=== PATIENT | female | born 1940 | race Caucasian/White ===

== ENCOUNTER 2020-02-29 13:48 | Outpatient (CLI) | payer MEDICARE, MEDICAID, SELFPAY ==
--- NOTE | 2020-02-29 13:54 | XR_ITS ---
WS: [id number] HIP WITH PELVIS RIGHT TECHNIQUE: 3 views of the right hip with pelvis CLINICAL INFORMATION: RIGHT HIP PAIN COMPARISON: None. FINDINGS: Moderate degenerative arthritis right hip. No acute fractures. Pelvic phleboliths. Right femoral neck and proximal femur normal. XR/XR hip RT 2-3V wo/w pel* [id number] IMPRESSION: Moderate degenerative arthritis right hip. No acute fractures.
== END 2020-02-29 13:49 | disposition home or self-care (01) ==
LOC: RADWPI 13:51
PROVIDERS: PCP Family Medicine; Visit Provider Family Medicine
DX: M16.11 Unilateral primary osteoarthritis, right hip (principal); M25.551 Pain in right hip
CPT/HCPCS: 73502

== ENCOUNTER 2020-04-12 14:44 | Outpatient (CLI) | payer MEDICARE, MEDICAID, SELFPAY ==
--- NOTE | 2020-04-12 | MR_ITS ---
WS: [id number] MRI LUMBAR SPINE NONCONTRAST HISTORY: BACK PAIN RADICULOPATHY, RIGHT hip pain and posterior leg pain. COMPARISON: 01/01/2017 TECHNIQUE: Sagittal and axial multisequence imaging is submitted. Prior cervical spine fusion. Increase in thoracic kyphosis. Extensive posterior lumbar fusion extends from L2 to L5. Posterior lumbar alignment is near normal. L 3 anterolisthesis by less than 2 mm. Severe disc space narrowing at L4-5. No marrow edema or acute fr acture. T12 benign hemangioma. Conus terminates normally at L2. T12-L1: Mild annular disc bulging and facet arthritis. Mild LEFT foraminal stenosis. L1-L2: Mild facet joint arthritis with annular disc bulging. Very mild bilateral foraminal stenosis. L2-L3: Large posterior laminectomy defects. No central canal stenosis. Mild bilateral foraminal steno sis. L3-L4: Mild deformity of the thecal sac. No central canal stenosis. Mild bilateral foraminal stenosis . L4-L5: No central canal stenosis. Mild facet joint arthritis with mild bilateral foraminal stenosis. Stenosis slightly greater on the RIGHT. L5-S1: No central stenosis. There is annular disc bulging and a shallow central disc protrusion. Debora lar disc bulging causing mild encroachment and narrowing of the foramen. There is a new mixed signal mass measuring 11 x 10 mm posterior to the RIGHT S1 segment. Increased signal predominantly on the T2 and STIR sequences and low signal on the T1 sequence. This mass is abutting the RIGHT lateral thecal sac and displacing the RIGHT S1 nerve root in the nerve roots in the thecal sac at the sacral level. There is fluid in the RIGHT L5-S1 facet joint. I favor this is probably a cyst. Paraspinal soft tissues are negative for acute process. MR/MR lumbar spine wo con* [id number] IMPRESSION: 1. Status post extensive posterior lumbar fusion from L2 to L5. 2. New variable signal mass measuring 11 x 10 mm posterior to the RIGHT S1 seg ment encroaching upon the RIGHT S1 nerve root and the nerve roots in the sacral region. New since prior studies from 2017. Favor this is probably a facet join t cyst which is complicated. Additional imaging with contrast should be obtaine d to rule out solid neoplasm. 3. Multilevel mild bilateral foraminal encroachment similar to prior studies.
== END 2020-04-12 14:45 | disposition home or self-care (01) ==
LOC: RADSHAW 14:51
PROVIDERS: PCP Family Medicine; Visit Provider Neurological Surgery
DX: M54.16 Radiculopathy, lumbar region (principal); R20.0 Anesthesia of skin; M54.9 Dorsalgia, unspecified; M54.12 Radiculopathy, cervical region; Z98.1 Arthrodesis status; M43.26 Fusion of spine, lumbar region
CPT/HCPCS: 72148

== ENCOUNTER 2020-04-20 10:34 | Outpatient (CLI) | payer MEDICARE, MEDICAID, SELFPAY ==
--- NOTE | 2020-04-20 10:43 | XRR_ITS ---
PROCEDURE INFORMATION: Exam: XR Cervical Spine, 4 or 5 Views Exam date and time: 04/20/2020 11:02 AM Age: 80 years old Clinical indication: Radicular pain (radiculopathy); Cervical region; Prior surgery; Surgery date: 6+ months; Surgery type: Fusion, date not known; Additional info: Radiculopathy cerivcal region TECHNIQUE: Imaging protocol: XR of the cervical spine, 5 views. Other technique: AP, AP open mouth odontoid, and neutral, flexion and extension lateral views of the cervical spine and a swimmer's lateral view are submitted. COMPARISON: CT Cervical Spine wo* [id number] 02/23/2016 10:17 AM FINDINGS: Vertebrae: No instability with flexion or extension positioning identified. Moderate C3-C4 and C4-C5 primary facet osteoarthritis. Anterior cervical discectomy and fusion has been performed at the C4-C5 and C5-C6 levels. The intervertebral body grafts are fused. The metallic hardware appears intact and in good position. Dental: Edentulous maxilla and mandible. Soft tissues: Unremarkable. XR/XR cervical spine 4-5V [id number] IMPRESSION: 1. Postoperative changes as above. 2. Degenerative changes as above. 3. No acute cervical spinal bony or hardware abnormality identified. 4. No instability with flexion or extension positioning identified.
== END 2020-04-20 10:35 | disposition home or self-care (01) ==
LOC: RAD 10:39
PROVIDERS: PCP Family Medicine; Visit Provider Neurological Surgery
DX: M54.2 Cervicalgia (principal); M54.12 Radiculopathy, cervical region; M47.812 Spondylosis without myelopathy or radiculopathy, cervical region; M43.22 Fusion of spine, cervical region
CPT/HCPCS: 72050

== ENCOUNTER 2020-05-11 13:25 | Outpatient (CLI) | payer MEDICARE, MEDICAID, SELFPAY ==
--- NOTE | 2020-05-11 13:31 | XR_ITS ---
WS: [id number] LUMBAR SPINE FLEXION AND EXTENSION TECHNIQUE: 3 views of the lumbar spine: Lateral neutral, flexion, and extension views. CLINICAL INFORMATION: RADICULOPATHY, LUMBAR REGION COMPARISON: None. FINDINGS: Prior postoperative changes pedicle screw fixation with interbody fusion L2-L3, L3-L4, L4-L5, and L5- S1. Immature interbody fusion L2-3. Aortic calcification. Normal alignment on the neutral view. Mild flexion instability L5-S1 measuring 3 mm. This returns to normal in extension. XR/XR lumbar spine f/e only [id number] IMPRESSION: Mild flexion instability L5-S1 measuring 3 mm.
== END 2020-05-11 13:26 | disposition home or self-care (01) ==
LOC: RAD 13:28
PROVIDERS: Family Provider Family Medicine; PCP Family Medicine; Visit Provider Neurological Surgery
DX: M54.16 Radiculopathy, lumbar region (principal); M53.2X6 Spinal instabilities, lumbar region
CPT/HCPCS: 72120

== ENCOUNTER 2020-12-30 09:22 | Outpatient (CLI) | payer MEDICARE, MEDICAID, SELFPAY ==
--- NOTE | 2020-12-30 09:32 | ECG_ITS ---
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 Interpretive Statements NAME OF STUDY: LEXISCAN SESTAMIBI STRESS TEST INDICATION: Cad PROCEDURE: At the baseline, the blood pressure was 123/60 mmHg, oxygen saturation 98% with a heart rate of 65 bpm. The electrocardiogram showed normal sinus rhythm, normal axis with normal ST and T's. The Lexiscan was infused over a period of 20 seconds. A total of 0.4 milligrams of Lexiscan was infused. The stress phase was continued for a total of 5 minutes. Heart rate at the end of the stress phase was 74 bpm, oxygen saturation 98% with a blood pressure of 123/61 mmHg. The EKG at the peak infusion revealed sinus rhythm with no significant ST-T wave changes. Sestamibi was injected 20 seconds after the Lexiscan infusion. Blood pressure at the end of the recovery phase was 125/65 mmHg, oxygen saturation 98% with a heart rate of 71 beats per minute. CONCLUSION: 1. No significant EKG changes with the LexiScan infusion. 2. No LexiScan induced chest pain or cardiac arrhythmia. 3. Normal blood pressure and heart rate response. 4. Sestamibi/sestamibi perfusion scan pending; see separate report. Electronically Signed On 01-02-2021 17:09:50 SHRIMP CLEANER by Xiomy Oropeza M.D. [id number]
--- NOTE | 2020-12-30 09:33 | NMCV_ITS ---
NM sherrie perf SPECT r/s* [id number] Kat Cat Age: 80 Gender: F : 1940 Exam Date: 12/30/2020 11:11 Ordering Phys: Mayte Caraballo MD Technologist: PRAVIN Jeffers Exam Location: [facility] Indications: CORONARY ARTERY DISEASE STRESS TEST Please see separate stress test report in [facility] for full findings IMAGE PROTOCOL Rest/Stress 1 Lexiscan Day Radiopharmaceutical Dose (mCi) Administration Site Administered by Rest: Tc-99m 11.0 IV PRAVIN Wray Sestamibi Stress:Tc-99m 32.9 IV PRAVIN Wray Sestamibi Rest: 30-Dec-2020 60 Discovery 630 Stress: 30-Dec-2020 30 Discovery 630 0.4mg Lexiscan. Images obtained in supine and prone position. SPECT RESULTS Technical Quality: Excellent Raw Data Analysis: Normal Image Corrections: No attenuation or motion correction applied Summed Stress Score: 0 Summed Rest Score: 0 Summed Difference Score: 0 PERFUSION FINDINGS SPECT images demonstrate homogeneous tracer distribution throughout the myocardium. FUNCTIONAL RESULTS (calculated via Gated SPECT) Stress Image LV EF (%): 73 Stress EDV (mL):70 TID: 0.92 Stress ESV (mL):19 FUNCTIONAL FINDINGS: The left ventricle is normal in size. Transient Ischemia Dilatation of 0.92. There is normal left ventricular systolic function. The left ventricular ejection fraction is normal with a value of 73%. There is normal left ventricular wall thickening. No regional wall motion abnormality. Normal end-diastolic and end-systolic volumes. IMPRESSIONS 1. Myocardial perfusion imaging is normal. 2. Overall left ventricular systolic function is normal without regional wall motion abnormalities. 3. The left ventricular ejection fraction is normal with a value of 73%. 4. Scan indicates low risk for cardiac events. Xiomy Oropeza MD (Electronically Signed) Final Date: 02 January 2021 17:07 S
[2020-12-30 09:54] VITALS: BMI 31.7
[2020-12-30] MEDS: regadenoson 0.4 Mg/5 ml Syringe IVP (12:14)
[2020-12-30 12:29] VITALS: BP 125/65; PULSE 72
== END 2020-12-30 09:23 | disposition home or self-care (01) ==
LOC: CDL 09:26
PROVIDERS: PCP Family Medicine; Visit Provider Internal Medicine
DX: I25.10 Atherosclerotic heart disease of native coronary artery without angina pectoris (principal)
CPT/HCPCS: 78452; 93017; A9500; J2785

== ENCOUNTER 2021-01-02 10:17 | Outpatient (CLI) | payer MEDICARE, MEDICAID, SELFPAY ==
--- NOTE | 2021-01-02 10:24 | USCV_ITS ---
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
--- NOTE | 2021-01-02 11:13 | MM_ITS ---
WS: [id number] BILATERAL SCREENING DIGITAL MAMMOGRAM WITH CAD HISTORY: SCREENING COMPARISON: 06/15/2019 and 10/11/2017 Bilateral CC and MLO views submitted. Computer aided detection analyzed. Breast composition: There are scattered areas of fibroglandular density. No suspicious masses, microc alcifications or architectural distortion. Scattered round calcifications and breast arterial calcifi cations within each breast. MM/[place] [id number] IMPRESSION: BI-RADS: 2-Benign FOLLOW UP: 1 Year Follow-up
== END 2021-01-02 10:18 | disposition home or self-care (01) ==
PROVIDERS: PCP Internal Medicine; Visit Provider Internal Medicine
DX: Z12.31 Encounter for screening mammogram for malignant neoplasm of breast (principal); I73.9 Peripheral vascular disease, unspecified; I25.10 Atherosclerotic heart disease of native coronary artery without angina pectoris; E11.40 Type 2 diabetes mellitus with diabetic neuropathy, unspecified
CPT/HCPCS: 77067; 93922

== ENCOUNTER 2021-06-13 15:16 | Outpatient (CLI) | payer MEDICARE, MEDICAID, SELFPAY ==
--- NOTE | 2021-06-13 | XR_ITS ---
WS: [id number] DEXA (DUAL ENERGY X-RAY ABSORPTIOMETRY) Bone mineral density was performed using a BillShrink machine. HISTORY: POST MENOPAUSAL COMPARISON: 05/27/2019 Left forearm BMD: 1.071 g/cm2. T score: 2.2 Z score: 4.9 Total hip BMD: Left: 0.972 g/cm2. T score: -0.3 Z score: 1.1 Right: 1.015 g/cm2. T score: 0.1 Z score: 1.4 10 year probability of a major osteoporotic fracture is 13%. Compared to the prior study from 05/27/2019. LEFT forearm bone mineral density has decreased by 1.1%. Bilateral hips bone mineral density has increased by 3.7%. XR/XR DEXA axial skeleton* [id number] IMPRESSION: NORMAL BONE MINERAL DENSITY based upon the WHO classification for females. Sign ificant increase in bone mineral density in the hips since the prior study.
== END 2021-06-13 15:17 | disposition home or self-care (01) ==
LOC: RADWPI 15:24
PROVIDERS: PCP Internal Medicine; Visit Provider Internal Medicine
DX: Z78.0 Asymptomatic menopausal state (principal)
CPT/HCPCS: 77080

== ENCOUNTER 2022-04-04 10:16 | Outpatient (CLI) | payer OTHER, MEDICAID, SELFPAY ==
--- NOTE | 2022-04-04 10:29 | MM_ITS ---
WS: [id number] BILATERAL SCREENING 3D TOMOSYNTHESIS DIGITAL MAMMOGRAM WITH CAD HISTORY: SCREENING COMPARISON: 01/02/2022, 06/15/2019 and 10/11/2017 Bilateral CC and MLO views submitted. Computer aided detection analyzed. Breast composition: There are scattered areas of fibroglandular density. No suspicious masses, microc alcifications or architectural distortion. Bilateral vascular calcifications and round punctate calci fications within each breast. No distortion. MM/[place] [id number] IMPRESSION: BI-RADS: 2-Benign FOLLOW UP: 1 Year Follow-up
== END 2022-04-04 10:17 | disposition home or self-care (01) ==
LOC: RAD 10:23
PROVIDERS: PCP Internal Medicine; Visit Provider Internal Medicine
DX: Z12.31 Encounter for screening mammogram for malignant neoplasm of breast (principal)
CPT/HCPCS: 77063; 77067

== ENCOUNTER → 2022-10-29 10:49 | Outpatient (BNVA) | payer OTHER, MEDICAID, SELFPAY | PROVIDERS: PCP Internal Medicine; Visit Provider Specialist | DX: G56.02 Carpal tunnel syndrome, left upper limb (principal) | CPT/HCPCS: 73110 ==

== ENCOUNTER 2022-10-29 14:24 | Outpatient (CLI) | payer OTHER, MEDICAID, SELFPAY | END 2022-10-29 14:25 | disposition home or self-care (01) | LOC: SPT 14:24 | PROVIDERS: PCP Internal Medicine; Visit Provider Specialist | DX: Z46.89 Encounter for fitting and adjustment of other specified devices (principal); G56.02 Carpal tunnel syndrome, left upper limb | CPT/HCPCS: 97760; L3908 ==

== ENCOUNTER 2022-11-16 08:02 | Day surgery (SDC) | payer MEDICARE, MEDICAID, SELFPAY ==
[2022-11-16] VITALS (8 sets, daily range): BP systolic 129–177; BP diastolic 70–97; PULSE 62–74; RESP 10–18; TEMP 36.2–36.7; O2SAT 96–100
[2022-11-16] MEDS: acetaminophen 1,000 MG/100 ML PIGGYBACK 400 MG IV (08:39)
[2022-11-16] MEDS: sodium chloride 0.9% 1,000 ML 30 ML IV (08:40)
[2022-11-16] MEDS: CELEcoxib 200 mg Capsule 400 MG PO (08:40)
--- NOTE | 2022-11-16 08:42 | W.PM.OPSUD ---
Surgery/Procedure H&P Update DATE OF PROCEDURE: November 16, 2022 DATE H&P PERFORMED: 11/15/22 H&P UPDATE INFORMATION: I have reviewed H&P completed within last 30 days, I have examined patient prior to procedure, No changes to prior documentation and [place] [facility] [place] indicated PREOP DIAGNOSIS: Left carpal tunnel syndrome PLANNED PROCEDURE: Operation Date: 11/16/22 09:50 Proposed Procedures p LEFT CARPAL TUNNEL RELEASE 19762 G56.0(Left) - Katia Parker MD Related Problem List Diagnoses (1) Carpal tunnel syndrome, left:
[2022-11-16 08:45] LABS: Glucose Point of Care 97 mg/dL (70-110)
--- NOTE | 2022-11-16 08:50 | ANES.PREANE2 ---
Pre-Anesthetic Assessment Height/Weight: Height 1.63 m Weight 75.296 kg Temp Pulse Resp BP Pulse Ox O2 Del Method 97.8 F 74 18 147/77 97 11/16/22 08:34 11/16/22 08:34 11/16/22 08:34 11/16/22 08:34 11/16/22 08:34 11/16/22 08:34 Preop Diagnosis: Left carpal tunnel syndrome Operation Date: 11/16/22 09:50 Proposed Procedures p LEFT CARPAL TUNNEL RELEASE 21279 G56.0(Left) - Katia Parker MD Familial anesthetic complications: None Was Beta Delphine taken within 24 hours: N/A Last intake: Intake Last Liquid Date 11/15/22 Last Liquid Time 21:00 Last Solid Date 11/15/22 Last Solid Time 18:30 Social No alcohol and No tobacco Exam alert, oriented x 3, clear to auscultation bilaterally and regular rate & rhythm Airway Mallampati: Class II Dentition: false Pulmonary Sleep Apnea CV/HEM Coronary Artery Disease (stent > 1 year) and Hypertension Metabolic Diabetes Mellitus and Hyperlipidemia Anesthetic Plan ASA status: 3 Anesthesia: General Risk of > 500 ml blood loss (7ml/kg in children): No Medications/Allergies Home Medications Medication Instructions Recorded Confirmed Last Taken Type ascorbic acid (vitamin C) 1,000 mg 1,000 mg PO BID 02/24/20 11/15/22 11/15/22 History tablet calcium 650 mg-vitamin D3 12.5 tab PO 02/24/20 11/15/22 11/15/22 History mcg-vitamin K 40 mcg chewable tablet (Viactiv) cholecalciferol (vitamin D3) 125 5,000 unit PO DAILY 02/24/20 11/15/22 11/15/22 History mcg (5,000 unit) capsule gabapentin 600 mg tablet 600 mg PO BID 02/24/20 11/15/22 11/15/22 History isosorbide dinitrate 30 mg tablet 30 mg PO DAILY 02/24/20 11/15/22 11/15/22 History levothyroxine 75 mcg capsule 75 mcg PO DAILY 02/24/20 11/15/22 11/15/22 History magnesium 250 mg tablet 250 mg PO DAILY 02/24/20 11/15/22 11/15/22 History metformin 1,000 mg tablet 1,000 mg PO BID 02/24/20 11/15/22 11/15/22 History pravastatin 80 mg tablet 80 mg PO DAILY 02/24/20 11/15/22 11/15/22 History enalapril 5 mg-hydrochlorothiazide 2 tab PO DAILY 90 days #180 tabs 03/02/20 11/15/22 11/15/22 Rx 12.5 mg tablet Cock Up Splint #1 ea 10/29/22 11/15/22 Unknown Rx dulaglutide 0.75 mg/0.5 mL 1 mg SUBCUT DIRECTED 11/15/22 11/15/22 11/10/22 History subcutaneous pen injector (Trulicity) empagliflozin 25 mg tablet 25 mg PO DAILY 11/15/22 11/15/22 11/15/22 History (Jardiance) Allergies Allergy/AdvReac Type Severity Reaction Status Date / Time sulfamethoxazole Allergy NA Verified 11/15/22 09:04 [From Bactrim] trimethoprim [From Bactrim] Allergy NA Verified 11/15/22 09:04 Current Medications Generic Name Dose Route Start Last Admin Trade Name Freq PRN Reason Stop Dose Admin Sodium Chloride 1,000 mls @ 30 mls/hr 11/16/22 08:45 11/16/22 08:40 Sodium Chloride 0.9% IV 11/17/22 08:44 30 mls/hr .Q24H RUPESH Administration PFSH Anesthesia Medical History HTN (hypertension) Surgical History H/O heart artery stent Family History Family/Other Cancer Diabetes CAD (coronary artery disease) Mother Cancer Colon CA Brother Cancer Colon CA Social History Smoking and tobacco status: never smoked Alcohol intake: never Marital status: Current occupational status: retired Data Anesthesia 11/16/22 08:35 Cardiac Studies: Sestamibi Stress Test (Cardiology) 12/30/20
[2022-11-16 09:06] LABS: Blood Urea Nitrogen 17 mg/dL (8-23); Calcium 9.4 mg/dL (8.5-10.5); Carbon Dioxide 25 mmol/L (22-29); Chloride 105 mmol/L (98-107); Glucose 91 mg/dL (65-115); Osmolality Calculated 293 mOsm/kg (285-295); Sodium 141 mmol/L (136-145)
[2022-11-16] MEDS: ceFAZolin 2,000 MG in sodium chloride 0.9% (plus) 50 ML 100 MG IV (09:35)
--- NOTE | 2022-11-16 10:38 | P.OP_ITS ---
Operative Report Date of procedure: November 16, 2022 Pre-op diagnosis: Left carpal tunnel syndrome Post-op diagnosis: Left carpal tunnel syndrome? Post-op findings: Very tight carpal canal with compression across the median nerve and hourglass deformity to the nerve. Procedure done: Left tunnel release Pathology: none sent Surgeon: Katia Parker Anesthesia: General (Per LMA, ASA 3) Estimated blood loss (mL): 2 Tourniquet time (min): 19 (At 250 mmHg) IV fluids (mL): 300 Urine output (mL): 0 (No Hughes) Complications: None Findings: Consistent with carpal tunnel syndrome with a tight carpal canal, thickened transverse carpal ligament, and deformity and discoloration of the median nerve. Condition: stable Disposition: PACU (Then return to same-day surgery for discharge to home) Brief History: This is an 82 year old female patient presenting for left carpal tunnel release. Risks and complications of been previously discussed with her. Patient rates pain at 7/10 in clinic today.? Patient notes that she was scheduled for cervical spine surgery in [place] on November 19; however, this has been postponed until December.? The patient wishes to proceed with left carpal tunnel syndrome. Risks and complications were discussed with her. Consents were signed preoperatively in the office. Procedure: The patient was brought to the operating theater. The patient had a general anesthesia per LMA, ASA 3. The tourniquet was elevated to 250 mmHg for a total tourniquet time of 19 minutes. The patient was also given Ancef 2 g preoperatively. The arm was then prepped and draped with DuraPrep in usual fashion with the arm draped free. A surgical pause was performed. At the time, the surgical pause, we confirmed the site and side of surgery. We also confirmed the patient's identity, appropriate and timely administration of preoperative antibiotics and preoperative surgical markings. An incision was then made along the thenar crease. The incision crossed the wrist joint in a curvilinear fashion. Dissection continued through skin and soft tissues using a scalpel. The palmaris longus was identified along with the transverse carpal ligament. Each of these was released carefully to avoid injury to the median nerve.? The transverse carpal ligament was significantly th ickened.? We were able to dissect gently into the carpal canal which was noted to be quite tight with significant compression across the median nerve. The nerve was visualized and was an hourglass shape with purplish discoloration. The canal was subsequently palpated to assure there was no bony encroachment upon the canal. The canal was then palpated distally and proximally to assure that my small finger was passed easily without impingement. Finding this to be so, attention was directed to closure. The wound was irrigated with ropivacaine plain. It was then closed with 2-0 nylon in an interrupted mattress fashion. Sterile dressing was then placed consisting of Dermabond, OpSite, fluffed fluffs, sterile soft roll, and an Nader wrap. The tourniquet was released after 19 minutes. There were no complications. There were no specimens. The procedure was well tolerated. Plan is the patient will be discharged home. Related Problem List Diagnoses (1) Carpal tunnel syndrome, left:
--- NOTE | 2022-11-16 14:42 | ANE.PACU2 ---
Inpatient post-anesthesia follow up: Airway intact: Yes Vital signs: Temperature 98.0 F Pulse Rate 62 Respiratory Rate 18 Blood Pressure 141/80 Pulse Oximetry 96 Oxygen Delivery Me thod Room Air Oxygen Flow Rate 10 Fraction of Inspir ed Oxygen Hydration adequate: Yes Nausea and vomiting: No Pain level: 1 Mental status: Baseline
== END 2022-11-16 11:38 | disposition home or self-care (01) ==
PROVIDERS: Anesthesiology; PCP Internal Medicine; Visit Provider Specialist
PROC: (CPT 64721; principal; 2022-11-16 09:40)
DX: G56.02 Carpal tunnel syndrome, left upper limb (principal); I25.10 Atherosclerotic heart disease of native coronary artery without angina pectoris; Z95.5 Presence of coronary angioplasty implant and graft; I10 Essential (primary) hypertension; G47.30 Sleep apnea, unspecified; E78.5 Hyperlipidemia, unspecified; E11.9 Type 2 diabetes mellitus without complications
CPT/HCPCS: 64721; 36415; 36416; 80048; 82962; J0131; J0690; J2704; J3010; J3490; J7030

== ENCOUNTER → 2022-12-04 10:32 | Outpatient (BNVA) | payer MEDICARE, MEDICAID, SELFPAY | PROVIDERS: PCP Internal Medicine; Visit Provider Nurse Practitioner Family | DX: Z98.890 Other specified postprocedural states (principal); R39.9 Unspecified symptoms and signs involving the genitourinary system | CPT/HCPCS: 81000; 99024 ==

== ENCOUNTER → 2023-01-08 09:47 | Outpatient (BNVA) | payer MEDICARE, MEDICAID, SELFPAY | PROVIDERS: PCP Internal Medicine; Visit Provider Nurse Practitioner Family | DX: G56.02 Carpal tunnel syndrome, left upper limb (principal); L84 Corns and callosities; M54.2 Cervicalgia; G89.29 Other chronic pain | CPT/HCPCS: 99024; 99214 ==

== ENCOUNTER 2023-05-06 09:44 | Emergency (ER) | payer MEDICARE, MEDICAID, SELFPAY ==
[2023-05-06 10:10] VITALS: BP 117/60; PULSE 67; RESP 17; TEMP 36.5; O2SAT 97
--- NOTE | 2023-05-06 11:09 | W.ED.FALL ---
HPI - Fall General: Chief Complaint: Fall Stated Complaint: hip pain down leg Time Seen by Provider: 05/06/23 11:01 Source: patient Mode of arrival: ambulatory Limitations: no limitations History of Present Illness: This 83-year-old female with a history of diabetes, hypertension and hyperlipidemia presents to the ER for evaluation of left hip pain. She stepped into a hole about a week ago and in the process, twisted her left hip. Since then, the hip has been hurting. She is able to bear weight and walk around though. She has a history of bilateral knee replacement and suffers from chronic neck and shoulder pain. She denies any other injuries. Associated symptoms-after fall: Denies chest pain, headache(s) or lightheadedness Review of Systems Const: Denies: chills, body aches or change in appetite Eyes: Denies: change in vision or eye discharge ENMT: Denies: throat pain, dental pain or nasal discharge Card: Denies: chest pain or lightheadedness : Denies: dysuria Musc: Reports: joint pain (Left hip) Neuro: Denies: headache(s) or weakness in extremities Psych: Denies: depression Juan R/Lymph: Denies: easy bruising All/Imm: Denies: urticaria, tongue swelling or facial swelling PFSH ED PFSH: Medical History HTN (hypertension) Surgical History H/O heart artery stent History of neck surgery Family History Family/Other Cancer Diabetes CAD (coronary artery disease) Mother Cancer Colon CA Brother Cancer Colon CA Social History Smoking and tobacco status: never smoked Alcohol intake: never Substance/Drug Use: never Marital status: Current occupational status: retired Physical Exam Const: COMMON NORMALS: no acute distress, patient oriented x3, no limitations and alert HENMT: COMMON NORMALS: normocephalic HEAD & SCALP: normocephalic Eye: COMMON NORMALS: EOMs intact bilaterally Neck/C-Spine: COMMON NORMALS: full ROM and supple Chest: COMMONS NORMALS: normal inspection of the chest Resp: COMMON NORMALS: normal respiratory effort, No retractions, No use of accessory muscles and clear to auscultation bilaterally AUSCULTATION: clear to auscultation bilaterally Cardio: COMMON NORMALS: regular rate, regular rhythm and No murmurs present (Cardio) RATE: regular rate RHYTHM: regular rhythm GI: COMMON NORMALS: Normal to inspection, nondistended, normoactive bowel sounds present and non-tender : COMMON NORMALS: Yes no CVA tenderness BLADDER/KIDNEY EXAM: Yes no CVA tenderness Back/Pelvis: COMMON NORMALS: no CVA tenderness and no thoracic nor lumbar tenderness Extremity: GENERAL: Yes normal exam except as noted OTHER: Full range of left hip movement though with pain. Presence of healed surgical scars on the anterior knees bilaterally. No distal neurovascular deficit. Neuro: COMMON NORMALS: patient oriented x3 and no focal motor deficits SENSORIUM/ORIENTATION: Yes alert Psych: COMMON NORMALS: mental status grossly normal and cooperative Course Vital Signs: Vital signs: Vital Signs Temperature 97.7 F 05/06/23 10:10 Pulse Rate 74 05/06/23 13:14 Respiratory Rate 16 05/06/23 13:14 Blood Pressure 133/65 05/06/23 13:14 Pulse Oximetry 96 05/06/23 13:14 Oxygen Delivery Me thod Room Air 05/06/23 13:14 MDM - Fall Medical Decision Making Medical decision making: Patient presents to the ER for evaluation of left hip pain that started after she stepped into a hole about a week ago. On exam, she has full range of left hip movement. X-ray is negative for fracture/dislocation. She will be treated symptomatically. Reasons to return were discussed. Lab Data Radiology Impressions Hip/Pelvis X-Ray 05/06/23 11:14 IMPRESSION: No acute findings. Discharge Plan Discharge Patient Disposition: Home Clinical Impression: Sprain of left hip Condition: Stable Prescriptions: New tramadol 50 mg tablet 50 mg PO Q6H PRN (Reason: pain) Qty: 20 0RF No Action enalapril-hydrochlorothiazide 5-12.5 mg tablet 2 tab PO DAILY 90 Days Qty: 180 3RF isosorbide dinitrate 30 mg tablet 30 mg PO DAILY levothyroxine 75 mcg capsule 75 mcg PO DAILY pravastatin 80 mg tablet 80 mg PO DAILY magnesium 250 mg tablet 250 mg PO DAILY ascorbic acid (vitamin C) 1,000 mg tablet 1,000 mg PO BID calcium-vitamin D3-vitamin K [Viactiv] 650 mg-12.5 mcg-40 mcg tablet,chewable 1 tab PO DAILY cholecalciferol (vitamin D3) 125 mcg (5,000 unit) capsule 5,000 unit PO DAILY gabapentin 600 mg tablet 600 mg PO BID (DME) Cock Up Splint See Rx Instructions .Route .MEDSUPPLY Qty: 1 0RF Rx Instructions: As directed Jardiance 25 mg tablet 25 mg PO DAILY Trulicity 0.75 mg/0.5 mL pen injector 1 mg SUBCUT Q7D Rx Instructions: on saturday omeprazole 40 mg capsule,delayed release(DR/EC) 40 mg PO DAILY methenamine hippurate 1 gram tablet 1 g PO DAILY citalopram 20 mg tablet 20 mg PO DAILY Aleve 220 mg Capsule 440 mg PO Q12H PRN (Reason: Pain) Discharge Orders: Discharge ED (Routine); Ordered 05/06/23 Ordered By: Cassidy Maier Referrals: Mayte Caraballo MD [Primary Care Provider] - Discharge Diet: Usual diet Discharge Activity: Resume usual activity Patient Instructions: Opioid Safety, Pain Management Activity Restrictions/Additional Instructions: Take tramadol as needed for pain. Follow-up with your primary care physician in a week for reevaluation. Return with new or worsening symptoms. Coding Level of Care Code ED Corporate Director for [facility]
--- NOTE | 2023-05-06 11:14 | XRR_ITS ---
PROCEDURE INFORMATION: Exam: XR Left Hip Exam date and time: 05/06/2023 11:31 AM Age: 83 years old Clinical indication: Hip pain; Left hip; Additional info: Left hip pain, please include pelvis TECHNIQUE: Imaging protocol: Radiologic exam of the left hip. Views: 2 or 3 views hip with pelvis when performed. COMPARISON: CT abdomen pelvis w con* [id number] 05/08/2017 1:20 PM FINDINGS: Bones/joints: Unremarkable. No acute fracture. Soft tissues: Unremarkable. XR/XR hip LT 2-3V wo/w pel* [id number] IMPRESSION: No acute findings.
[2023-05-06 13:14] VITALS: BP 133/65; PULSE 74; RESP 16; O2SAT 96
[2023-05-06] MEDS: ketorolac 30 mg/mL INJ IM (13:18)
[2023-05-06 14:18] VITALS: BP 133/65; PULSE 74; RESP 16; O2SAT 96
== END 2023-05-06 14:19 | disposition home or self-care (01) ==
PROVIDERS: Emergency Provider Family Medicine; PCP Internal Medicine
DX: S73.102A Unspecified sprain of left hip, initial encounter (principal); X50.1XXA Overexertion from prolonged static or awkward postures, initial encounter
CPT/HCPCS: 73502; 96372; 99284; J1885

== ENCOUNTER 2023-05-21 10:56 | Outpatient (CLI) | payer MEDICARE, MEDICAID, SELFPAY ==
--- NOTE | 2023-05-21 11:26 | XR_ITS ---
WS: [id number] EXAMINATION: XR lumbar spine min 4V [id number] L-SPINE : 3 views REASON FOR EXAM: DEGENERATIVE DISC DA,LUMBAR SPINE COMPARISON: 05/11/2020 ORDER DATE: 05/21/2023 11:28 AM FINDINGS: Prior postoperative changes pedicle screw fixation with interbody fusion L2-L3, L3-L4, L4-L5, and L5-S1. Aortic calcification. Previous cholecystectomy XR/XR lumbar spine min 4V [id number] IMPRESSION: Normal alignment. No change from previous. Atherosclerotic aortic change
== END 2023-05-21 10:57 | disposition home or self-care (01) ==
LOC: RAD 11:00
PROVIDERS: PCP Internal Medicine; Visit Provider Internal Medicine
DX: M51.36 Other intervertebral disc degeneration, lumbar region (principal)
CPT/HCPCS: 72110

== ENCOUNTER 2023-07-18 11:15 | Outpatient (CLI) | payer MEDICARE, MEDICAID, SELFPAY ==
--- NOTE | 2023-07-18 11:22 | MM_ITS ---
WS: [id number] Bilateral screening 3D tomosynthesis digital mammogram, 07/18/2023 Clinical Data: SCREEN Comparison: 04/04/2022, 01/02/2021, 06/15/2019, 10/11/2017, 05/26/2015, 07/04/2012, 03/27/2010, 03/18/2009, 03/02, 03/14/2007. Findings: The breast parenchymal pattern shows heterogeneous density. No spiculated masses or clustered calcifi cations are seen. There are no secondary signs of carcinoma. There are scattered benign calcification s and vascular calcifications in both breasts. Impression: 1. Negative bilateral mammogram unchanged. 2. Recommend annual screening mammograms. MM/[place] [id number] BIRADS: 1-Negative FOLLOW UP: 1 Year Follow-up The CAD grade checker was used.
== END 2023-07-18 11:16 | disposition home or self-care (01) ==
PROVIDERS: PCP Internal Medicine; Visit Provider Internal Medicine
DX: Z12.31 Encounter for screening mammogram for malignant neoplasm of breast (principal)
CPT/HCPCS: 77063; 77067

== ENCOUNTER 2023-10-17 12:31 | Emergency (ER) | payer MEDICARE, MEDICAID, SELFPAY ==
[2023-10-17 12:35] VITALS: BP 132/75; PULSE 66; RESP 18; TEMP 37.4; O2SAT 100; BMI 27.4
--- NOTE | 2023-10-17 12:50 | CT_ITS ---
WS: [id number] CT HEAD TECHNIQUE: Noncontrast CT of the head obtained from the skullbase to the vertex. CLINICAL INFORMATION: syncope headache COMPARISON: CT 2016 DLP: 1051.[address] scans at [facility] use at least one of these dose optimization techniques: automated e xposure control; mA and/or kV adjustment per patient size (includes targeted exams where dose is matc hed to clinical indication); or iterative reconstruction. FINDINGS: No evidence of intracranial hemorrhage or mass effect. Ventricular system and basal cisterns are vu nt. Low-attenuation change in the LEFT parietal white matter measuring 3.5 x 1.5 cm suspicious for subacu te versus chronic ischemia. This is new since 2016. This could be further evaluated with MRI. Otherwise no significant small vessel changes. No significant parenchymal volume loss. Paranasal sinu ses and mastoid air cells are well aerated. Cavernous carotid calcification. IMPRESSION: 1. No evidence of intracranial hemorrhage or mass effect. 2. Age-indeterminate but suspected subacute infarct in the LEFT parietal lobe with low-attenuation c hange. This could further evaluated with MRI. 3. No other suspicious findings.
--- NOTE | 2023-10-17 12:50 | XR_ITS ---
WS: [id number] Exam: XR chest 1V portable [id number] Date/Time of Exam: 10/17/2023 12:50 PM Reason For Exam: syncope Comparison 03/17/2015. The lungs are hyperinflated and clear. Heart size is normal. No pleural effusions. Bony structures ar e intact. DJD of both shoulders. Fusion hardware in the lower C-spine. Spondylosis of the T-spine. IMPRESSION: 1. Pulmonary hyperinflation. No acute process.
--- NOTE | 2023-10-17 12:54 | W.ED.COVID ---
HPI - COVID General: Chief Complaint: COVID symptoms Stated Complaint: Covid Pos Time Seen by Provider: 10/17/23 12:52 History of Present Illness: patient presents to the ER with complaints of nausea vomiting diarrhea x2 weeks. Patient's been COVID-positive for about 1-1/2 weeks. Patient has syncopal episode yesterday. Patient did fall and hit her head yesterday. She did vomit and have a bowel movement yesterday after passing out. Patient has a scrape on her right forehead. Patient has no other complaints at this time. COVID Results: No Data to Display Review of Systems General: Reports: 10 or more systems reviewed and unremarkable except in HPI and below PFSH ED PFSH: Medical History HTN (hypertension) Surgical History H/O heart artery stent History of neck surgery Family History Family/Other Cancer Diabetes CAD (coronary artery disease) Mother Cancer Colon CA Brother Cancer Colon CA Social History Smoking and tobacco/nicotine status: never used tobacco/nicotine Alcohol intake: never Substance/Drug Use: never Marital status: Current occupational status: retired Physical Exam Const: COMMON NORMALS: no acute distress, average body habitus, patient oriented x3, no limitations, healthy appearing, alert and well nourished HENMT: COMMON NORMALS: normocephalic, hearing grossly normal bilaterally, Normal external nose present, moist oral mucous membranes and oropharynx normal; head/scalp not atraumatic (Abrasion to right forehead) HEAD & SCALP: normocephalic; not atraumatic (Abrasion to right forehead) NOSE: Normal external nose present Eye: COMMON NORMALS: Equal, round and reactive pupils present, EOMs intact bilaterally, conjunctivae normal and no scleral icterus CONJUNCTIVA: Yes conjunctivae normal PUPIL: Yes Equal, round and reactive pupils present Neck/C-Spine: COMMON NORMALS: full ROM, no lymphadenopathy, supple, no meningeal signs, no JVD and Thyroid normal THYROID: Thyroid normal Chest: COMMONS NORMALS: normal inspection of the chest and normal palpation of entire chest wall Resp: COMMON NORMALS: normal respiratory effort, No retractions, No use of accessory muscles and clear to auscultation bilaterally AUSCULTATION: clear to auscultation bilaterally Cardio: COMMON NORMALS: no JVD, regular rate, regular rhythm, S1 normal heart sound present, S2 normal heart sound present, No gallops present (Cardio), No clicks present (Cardio), No murmurs present (Cardio) and No rub (Cardio) RATE: regular rate RHYTHM: regular rhythm HEART SOUNDS: S1 normal heart sound present and S2 normal heart sound present GI: COMMON NORMALS: Normal to inspection, nondistended, normoactive bowel sounds present, Soft to palpation, non-tender, No hepatosplenomegaly present and no masses PALPATION: Yes Soft to palpation and Yes No hepatosplenomegaly present Neuro: COMMON NORMALS: patient oriented x3 SENSORIUM/ORIENTATION: Yes alert MENINGEAL SIGNS: Yes no meningeal signs Course Vital Signs: Vital signs: Vital Signs Temperature 99.3 F 10/17/23 12:35 Pulse Rate 66 10/17/23 12:35 Respiratory Rate 18 10/17/23 12:35 Blood Pressure 150/95 10/17/23 16:30 Pulse Oximetry 98 10/17/23 15:30 Oxygen Delivery Me thod Room Air 10/17/23 15:30 [facility] - COVID Medical Decision Making Patient was worked up with labs and EKGs chest x-ray and head CT. Lab work was essentially benign. Chest x-ray was negative. Head CT was negative for bleed or mass effect, suspected subacute infarct in the left parietal lobe was suspected. Patient be discharged home to follow-up with her PCP and suggest that an MRI be obtained. Differential Diagnosis Unlikely COVID 19, influenza, other viral infection, bacterial infection, pneumonia, copd exacerbation, pulmonary embolism, NSTEMI/STEMI, CHF exacerbation, stroke or overdose/intoxication Lab Data 10/17/23 13:18 10/17/23 13:18 Laboratory Results WBC 6.78 10^3/uL (3.29-11.43) 10/17/23 13:18 RBC 4.30 10^6/uL (3.85-5.65) 10/17/23 13:18 Hgb 13.70 g/dL (11.27-16.99) 10/17/23 13:18 Hct 40.2 % (36-47) 10/17/23 13:18 MCV 93.5 fl (85-98) 10/17/23 13:18 MCH 31.9 pg (27-33) 10/17/23 13:18 MCHC 34.1 g/dL (30-55) 10/17/23 13:18 RDW 11.8 % (12.1-15.1) L 10/17/23 13:18 Plt Count 203 10^3/cmm (157-399) 10/17/23 13:18 MPV 10.0 fL (7.4-10.4) 10/17/23 13:18 Neut % (Auto) 73.3 % 10/17/23 13:18 Lymph % (Auto) 18.6 % 10/17/23 13:18 [place] % (Auto) 6.2 % 10/17/23 13:18 Eos % (Auto) 0.6 % 10/17/23 13:18 Baso % (Auto) 0.4 % 10/17/23 13:18 Neut # (Auto) 4.97 10^3/uL (1.8-7.7) 10/17/23 13:18 Lymph # (Auto) 1.3 10^3/uL (0.8-4.8) 10/17/23 13:18 [place] # (Auto) 0.4 10^3/uL (0.2-0.9) 10/17/23 13:18 Eos # (Auto) 0.0 10^3/uL (0.0-0.8) 10/17/23 13:18 Baso # (Auto) 0.0 10^3/uL (0.0-0.1) 10/17/23 13:18 Nucleated RBC % (auto) 0 % 10/17/23 13:18 Nucleated RBCs # 0.0 /100WBC 10/17/23 13:18 PT 13.90 SECONDS (12.1-14.9) 10/17/23 13:18 INR 1.04 (0.8-1.2) 10/17/23 13:18 Sodium 138 mmol/L (136-145) 10/17/23 13:18 Potassium 4.2 mmol/L (3.5-5.1) 10/17/23 13:18 Chloride 103 mmol/L (98-107) 10/17/23 13:18 Carbon Dioxide 25 mmol/L (22-29) 10/17/23 13:18 Anion Gap 14.2 (5-19) 10/17/23 13:18 BUN 24 mg/dL (8-23) H 10/17/23 13:18 Creatinine 1.1 mg/dL (0.5-0.9) H 10/17/23 13:18 GFR Calculation Not Reportable 10/17/23 13:18 Glucose 110 mg/dL (65-115) 10/17/23 13:18 Calculated Osmolality 291 mOsm/kg (285-295) 10/17/23 13:18 Calcium 9.6 mg/dL (8.5-10.5) 10/17/23 13:18 Magnesium 1.8 mg/dL (1.7-2.3) 10/17/23 13:18 Total Bilirubin 0.8 mg/dL (0.15-1.2) 10/17/23 13:18 AST 20 U/L (0-32) 10/17/23 13:18 ALT 37 U/L (0-33) H 10/17/23 13:18 Alkaline Phosphatase 53 U/L (35-105) 10/17/23 13:18 Troponin T Baseline 17 ng/L (0-10) H 10/17/23 13:18 Troponin T 120 Minute 15.43 ng/L (0-10) H 10/17/23 15:45 Delta Troponin T -1.57 ABS# (0-10) L 10/17/23 15:45 Total Protein 6.7 g/dL (6.6-8.7) 10/17/23 13:18 Albumin 4.4 g/dL (3.5-5.2) 10/17/23 13:18 Globulin 2.3 g/dL (1.3-4.6) 10/17/23 13:18 TSH 1.77 uIU/mL (0.27-4.20) 10/17/23 13:18 Prolactin 6.97 ng/mL (4.8-23.3) 10/17/23 13:18 No Data to Display All radiology interpretation(s) finalized by discharge EKG Data EKG 1: I personally reviewed and interpreted this EKG as follows: EKG interpretation date: 10/17/23 EKG interpretation time: 13:29 Prior EKG tracings: not available for review Interpretation: EKG showed rate of 64 bpm, TX interval 187, QRS 82, QTc of 408, sinus rhythm, no ST-T wave changes EKG 2: I personally reviewed and interpreted this EKG as follows: EKG interpretation date: 10/17/23 EKG interpretation time: 15:28 Prior EKG tracings: available for review Interpretation: EKG showed ventricular rate 67 bpm, TX interval 182, QRS 85, QTc of 391, sinus rhythm, no ST-T wave changes Discharge Plan Discharge Patient Disposition: Home Clinical Impression: Gastroenteritis Syncope Qualifiers: Syncope type: unspecified Qualified Code(s): R55 - Syncope and collapse Condition: Stable Prescriptions: No Action enalapril-hydrochlorothiazide 5-12.5 mg tablet 2 tab PO DAILY 90 Days Qty: 180 3RF isosorbide dinitrate 30 mg tablet 30 mg PO DAILY levothyroxine 75 mcg capsule 75 mcg PO DAILY pravastatin 80 mg tablet 80 mg PO DAILY magnesium 250 mg tablet 250 mg PO DAILY ascorbic acid (vitamin C) 1,000 mg tablet 1,000 mg PO BID calcium-vitamin D3-vitamin K [Viactiv] 650 mg-12.5 mcg-40 mcg tablet,chewable 1 tab PO DAILY cholecalciferol (vitamin D3) 125 mcg (5,000 unit) capsule 5,000 unit PO DAILY gabapentin 600 mg tablet 600 mg PO BID (DME) Cock Up Splint See Rx Instructions .Route .MEDSUPPLY Qty: 1 0RF Rx Instructions: As directed Jardiance 25 mg tablet 25 mg PO DAILY Trulicity 0.75 mg/0.5 mL pen injector 1 mg SUBCUT Q7D Rx Instructions: on saturday omeprazole 40 mg capsule,delayed release(DR/EC) 40 mg PO DAILY methenamine hippurate 1 gram tablet 1 g PO DAILY citalopram 20 mg tablet 20 mg PO DAILY naproxen sodium [Aleve] 220 mg Capsule 440 mg PO Q12H PRN (Reason: Pain) Discharge Orders: Discharge ED (Routine); Ordered 10/17/23 Ordered By: Amado Mitchell Referrals: Mayte Caraballo MD [Primary Care Provider] - 1 week Patient Instructions: Gastroenteritis (ED), Syncope in Older Adults (ED) Coding Level of Care Code ED Co Director for Ling Concepcion
[2023-10-17 13:06] VITALS: O2SAT 100
[2023-10-17 13:24] LABS: Basophils % 0.4 %; Eosinophils % 0.6 %; Hematocrit 40.2 % (36-47); Lymphocytes # 1.3 10^3/uL (0.8-4.8); Lymphocytes % 18.6 %; Mean Corpuscular HGB Conc 34.1 g/dL (30-55); Mean Corpuscular Hemoglobin 31.9 pg (27-33); Mean Corpuscular Volume 93.5 fl (85-98); Monocytes # 0.4 10^3/uL (0.2-0.9); Monocytes % 6.2 %; Neutrophils # 4.97 10^3/uL (1.8-7.7); Neutrophils % 73.3 %; Nucleated Red Blood Cells % 0 %; Platelet Count 203 10^3/cmm (157-399); Red Cell Distribution Width 11.8 % (12.1-15.1); White Blood Count 6.78 10^3/uL (3.29-11.43)
[2023-10-17 13:34] LABS: INR 1.04 (0.8-1.2)
[2023-10-17 13:41] LABS: Troponin(5th) Baseline 17 ng/L (0-10)
[2023-10-17 13:58] LABS: Alanine Aminotransferase 37 U/L (0-33); Albumin Level 4.4 g/dL (3.5-5.2); Alkaline Phosphatase 53 U/L (35-105); Anion Gap 14.2 (5-19); Aspartate Amino Transferase 20 U/L (0-32); Blood Urea Nitrogen 24 mg/dL (8-23); Calcium 9.6 mg/dL (8.5-10.5); Carbon Dioxide 25 mmol/L (22-29); Chloride 103 mmol/L (98-107); Globulin 2.3 g/dL (1.3-4.6); Glucose 110 mg/dL (65-115); Magnesium 1.8 mg/dL (1.7-2.3); Osmolality Calculated 291 mOsm/kg (285-295); Potassium 4.2 mmol/L (3.5-5.1); Prolactin 6.97 ng/mL (4.8-23.3); Sodium 138 mmol/L (136-145); Thyroid Stimulating Hormone 1.77 uIU/mL (0.27-4.20); Total Bilirubin 0.8 mg/dL (0.15-1.2); Total Protein 6.7 g/dL (6.6-8.7)
--- NOTE | 2023-10-17 14:50 | ECG_ITS ---
[facility] Test Date: 2023-10-17 Pat Name: Kat Cat Department: Room: Gender: Female Donor Services Coordinator: : 1940 Requested By: Amado Mitchell Order Number: [id number] Trevor MD: Smith Mercedes M.D. Measurements Intervals [place] Rate: 64 P: 62 AK: 187 QRS: 9 QRSD: 82 T: 66 QT: 394 QTc: 408 Interpretive Statements SINUS RHYTHM Compared to ECG 08/15/2016 11:50:19 No significant changes Electronically Signed On 10-18-2023 14:19:17 PRESSER AUTOMATIC by Smith Mercedes M.D. [email or web address]/store/[id number]
--- NOTE | 2023-10-17 15:28 | ECG_ITS ---
[facility] Test Date: 2023-10-17 Pat Name: Kat Cat Department: Room: Gender: Female Cloth Dyer: : 1940 Requested By: Amado Mitchell Order Number: [id number] Trevor MD: Smith Mercedes M.D. Measurements Intervals [place] Rate: 67 P: 51 MD: 182 QRS: 10 QRSD: 85 T: 69 QT: 368 QTc: 391 Interpretive Statements SINUS RHYTHM Compared to ECG 10/17/2023 13:29:15 No significant changes Electronically Signed On 10-18-2023 14:20:10 PLUCK SEPARATOR by Smith Mercedes M.D. [id number]
[2023-10-17 15:30] VITALS: O2SAT 98
[2023-10-17 16:28] LABS: Troponin 5 2HR 15.43 ng/L (0-10); Troponin 5 2HR Delta -1.57 ABS# (0-10)
[2023-10-17 16:30] VITALS: BP 150/95
[2023-10-17 17:21] VITALS: O2SAT 98
== END 2023-10-17 18:03 | disposition home or self-care (01) ==
PROVIDERS: Emergency Provider Emergency Medicine; PCP Internal Medicine
DX: K52.9 Noninfective gastroenteritis and colitis, unspecified (principal); R55 Syncope and collapse; Z79.85 Long-term (current) use of injectable non-insulin antidiabetic drugs; I10 Essential (primary) hypertension
CPT/HCPCS: 36415; 70450; 71045; 80053; 83735; 84146; 84443; 84484; 85025; 85610; 93005; 99285

== ENCOUNTER 2023-12-30 10:35 | Emergency (ER) | payer MEDICARE, MEDICAID, SELFPAY ==
[2023-12-30 11:19] VITALS: BP 124/73; PULSE 82; RESP 16; TEMP 36.7; O2SAT 97; BMI 27.4
--- NOTE | 2023-12-30 13:20 | XRR_ITS ---
PROCEDURE INFORMATION: Exam: XR Left Knee Exam date and time: 12/30/2023 1:29 PM Age: 83 years old Clinical indication: Injury or trauma; Fall; Blunt trauma; Knee; Left; Prior surgery; Surgery date: 6+ months; Additional info: Trauma/fall TECHNIQUE: Imaging protocol: Radiologic exam of the left knee. Views: 3 views. COMPARISON: No relevant prior studies available. FINDINGS: Bones/joints: Intact total knee arthroplasty without evidence of hardware complication. No acute fracture or dislocation. Suprapatellar joint effusion. Soft tissues: Unremarkable. Vasculature: Mild peripheral arterial calcifications. XR/XR knee LT 3V* [id number] IMPRESSION: Left knee joint effusion without acute bony abnormality.
--- NOTE | 2023-12-30 13:21 | W.ED.LOWEXIN ---
HPI - Extremity Injury (Lower) General: Chief Complaint: Fall Stated Complaint: fall, left side pain Time Seen by Provider: 12/30/23 13:13 Source: patient Mode of arrival: wheelchair Limitations: no limitations History of Present Illness: Patient is an 83-year-old female presents to ED today for evaluation following a fall injury yesterday. Patient states she fell and landed directly onto her left knee. Patient states knee since the injury has been incredibly painful. She requires assistance to help with ambulation. Patient is concerned as she has a prosthesis in the knee. MD complaint: knee injury Onset (ago): day(s) (yesterday ) Type of Injury: blunt Place: home Severity: moderate Relieving factors: immobilization Exacerbating factors: weight bearing, movement and palpation Context: fall Associated symptoms: Reports inability to bear weight Other symptoms: none Review of Systems Card: Denies: chest pain, palpitations, lightheadedness, syncope or pre-syncope Resp: Denies: dyspnea Musc: Reports: joint pain (L knee) and joint swelling (L knee); Denies: neck pain, back pain, extremity pain, extremity swelling, joint redness or joint warmth Skin/Breast: Denies: rash Neuro: Denies: headache(s), numbness in extremities, weakness in extremities or sensory changes PFS ED PFSH: Medical History HTN (hypertension) Surgical History History of neck surgery H/O heart artery stent Family History Family/Other Cancer Diabetes CAD (coronary artery disease) Mother Cancer Colon CA Brother Cancer Colon CA Social History Smoking and tobacco/nicotine status: never used tobacco/nicotine Alcohol intake: never Substance/Drug Use: never Marital status: Current occupational status: retired Physical Exam Const: COMMON NORMALS: no acute distress, average body habitus, patient oriented x3, no limitations, healthy appearing, alert and well nourished ORIENTATION/CONSCIOUSNESS: Yes awake, Yes oriented to person, Yes oriented to place and Yes oriented to time HENMT: COMMON NORMALS: normocephalic and atraumatic HEAD & SCALP: normal to inspection, normocephalic and atraumatic Neck/C-Spine: GENERAL: Yes normal visual inspection CERVICAL SPINE: No Cervical spine tenderness Resp: COMMON NORMALS: normal respiratory effort and clear to auscultation bilaterally AUSCULTATION: clear to auscultation bilaterally Cardio: COMMON NORMALS: regular rate and regular rhythm RATE: regular rate RHYTHM: regular rhythm Back/Pelvis: COMMON NORMALS: thoracic and lumbar spine normal to inspection Extremity: COMMON NORMALS: capillary refill normal, no calf tenderness and no pedal edema GENERAL: Yes normal exam except as noted LEFT LOWER EXTREMITY: Yes knee joint (TTP anteriomedial joint pain) Left knee: Yes palpation (mild effusion noted) and Yes neurovascular exam (normal) Neuro: COMMON NORMALS: patient oriented x3, moves all extremities, no focal motor deficits and no sensory deficits noted SENSORIUM/ORIENTATION: Yes alert, Yes oriented to person, Yes oriented to place and Yes oriented to time Course Vital Signs: Vital signs: Vital Signs Temperature 98.1 F 12/30/23 11:19 Pulse Rate 82 12/30/23 11:19 Respiratory Rate 16 12/30/23 11:19 Blood Pressure 124/73 12/30/23 11:19 Pulse Oximetry 97 12/30/23 11:19 Oxygen Delivery Me thod Room Air 12/30/23 11:19 MDM - Extremity Injury (Lower) Medical Decision Making XR negative for acute fracture/hardware loosening. She does have a joint effusion. Patient is requesting follow-up with orthopedics. She will be provided a walker to help with ambulation. Recommend ice and elevation. She was placed in an ABRAN wrap. Will be given small amount of pain medications. Lab Data Radiology Impressions Knee X-Ray 12/30/23 13:20 IMPRESSION: Left knee joint effusion without acute bony abnormality. All radiology interpretation(s) finalized by discharge Discharge Plan Discharge Patient Disposition: Home Clinical Impression: Injury of knee, left Qualifiers: Encounter type: initial encounter Qualified Code(s): S89.92XA - Unspecified injury of left lower leg, initial encounter Condition: Stable Prescriptions: New hydrocodone-acetaminophen 5-325 mg tablet 1 tab PO Q6H PRN (Reason: pain) Qty: 14 0RF No Action enalapril-hydrochlorothiazide 5-12.5 mg tablet 2 tab PO DAILY 90 Days Qty: 180 3RF isosorbide dinitrate 30 mg tablet 30 mg PO DAILY levothyroxine 75 mcg capsule 75 mcg PO DAILY pravastatin 80 mg tablet 80 mg PO DAILY magnesium 250 mg tablet 250 mg PO DAILY ascorbic acid (vitamin C) 1,000 mg tablet 1,000 mg PO BID calcium-vitamin D3-vitamin K [Viactiv] 650 mg-12.5 mcg-40 mcg tablet,chewable 1 tab PO DAILY cholecalciferol (vitamin D3) 125 mcg (5,000 unit) capsule 5,000 unit PO DAILY gabapentin 600 mg tablet 600 mg PO BID (DME) Cock Up Splint See Rx Instructions .Route .MEDSUPPLY Qty: 1 0RF Rx Instructions: As directed Jardiance 25 mg tablet 25 mg PO DAILY Trulicity 0.75 mg/0.5 mL pen injector 1 mg SUBCUT Q7D Rx Instructions: on saturday omeprazole 40 mg capsule,delayed release(DR/EC) 40 mg PO DAILY methenamine hippurate 1 gram tablet 1 g PO DAILY citalopram 20 mg tablet 20 mg PO DAILY naproxen sodium [Aleve] 220 mg Capsule 440 mg PO Q12H PRN (Reason: Pain) Discharge Orders: Discharge ED (Routine); Ordered 12/30/23 Ordered By: Rica Rodgers Other Ambulatory Orders: DME: Walker (Order) Location: None Selected Ordered By: Rica Rodgers Referrals: Mayte Caraballo MD [Primary Care Provider] - Patient Instructions: Opioid Safety, Pain Management Activity Restrictions/Additional Instructions: As we discussed please use use the walker to help ambulate. You may ice and elevate the extremity is much as possible. We we will refer you to orthopedics for further evaluation/treatment. You may use the pain medications prescribed to use sparingly for severe pain. Coding Level of Care Code ED Door To Door Salesman for Ling Concepcion
[2023-12-30 15:01] VITALS: BP 125/79; PULSE 82; RESP 16; O2SAT 97
--- NOTE | 2024-01-01 08:15 | DCPLANNER ---
Message sent to Orthopedics for a follow up appointment for visit in ER 12/30/23
== END 2023-12-30 15:08 | disposition home or self-care (01) ==
PROVIDERS: Emergency Provider Physician Assistant; PCP Internal Medicine
DX: M25.462 Effusion, left knee (principal); S89.92XA Unspecified injury of left lower leg, initial encounter; Z79.85 Long-term (current) use of injectable non-insulin antidiabetic drugs; I10 Essential (primary) hypertension; W19.XXXA Unspecified fall, initial encounter
CPT/HCPCS: 73562; 99283

== ENCOUNTER 2024-01-07 14:22 | Outpatient (CLI) | payer MEDICARE, MEDICAID, SELFPAY ==
--- NOTE | 2024-01-07 14:31 | MR_ITS ---
WS: [id number] MRI LEFT KNEE HISTORY: ACUTE LEFT KNEE PAIN//EFFUSION OF LEFT KNEE COMPARISON: LEFT knee radiograph 12/30/2023. Patient has a known LEFT knee replacement which is causing significant limitations for evaluation of the internal structures. There is significant artifact. Cruciate ligaments and the menisci cannot be evaluated. There is significant micrometallic artifact, motion artifact and metal artifact titanium artifact thr oughout the knee. No significant joint effusion. No fluid. The visualized bone is negative for for ed kelly. No significant joint effusion is identified. IMPRESSION: Extremely limited evaluation of the LEFT knee due to the knee arthroplasty that is present causing si gnificant artifact. Essentially nondiagnostic.
== END 2024-01-07 14:23 | disposition home or self-care (01) ==
PROVIDERS: PCP Internal Medicine; Visit Provider Nurse Practitioner Family
DX: M25.562 Pain in left knee (principal); M25.462 Effusion, left knee; Z96.652 Presence of left artificial knee joint
CPT/HCPCS: 73721

== ENCOUNTER → 2024-01-13 08:28 | Outpatient (BNVA) | payer MEDICARE, MEDICAID, SELFPAY | PROVIDERS: PCP Internal Medicine; Referring Provider Nurse Practitioner Family; Visit Provider Specialist | DX: S82.022A Displaced longitudinal fracture of left patella, initial encounter for closed fracture; W19.XXXA Unspecified fall, initial encounter; Z96.652 Presence of left artificial knee joint | CPT/HCPCS: 27520; 73560; 73565; 97760; 99214; L1812 ==

== ENCOUNTER 2024-01-13 10:44 | Outpatient (CLI) | payer MEDICARE, MEDICAID, SELFPAY | END 2024-01-13 10:45 | disposition home or self-care (01) | LOC: SPT 11:02 | PROVIDERS: PCP Internal Medicine; Visit Provider Specialist | DX: Z46.89 Encounter for fitting and adjustment of other specified devices (principal); S82.025D Nondisplaced longitudinal fracture of left patella, subsequent encounter for closed fracture with routine healing; X58.XXXD Exposure to other specified factors, subsequent encounter; S82.022A Displaced longitudinal fracture of left patella, initial encounter for closed fracture; W19.XXXA Unspecified fall, initial encounter; Z96.652 Presence of left artificial knee joint | CPT/HCPCS: 27520; 97760; 99214; L1812 ==

== ENCOUNTER → 2024-02-03 13:12 | Outpatient (BNVA) | payer MEDICARE, MEDICAID, SELFPAY | PROVIDERS: PCP Internal Medicine; Visit Provider Nurse Practitioner | DX: S82.022D Displaced longitudinal fracture of left patella, subsequent encounter for closed fracture with routine healing; W19.XXXD Unspecified fall, subsequent encounter; Z96.652 Presence of left artificial knee joint | CPT/HCPCS: 73562; 99024 ==

== ENCOUNTER → 2024-02-24 13:25 | Outpatient (BNVA) | payer MEDICARE, MEDICAID, SELFPAY | PROVIDERS: PCP Internal Medicine; Visit Provider Specialist | DX: S82.022D Displaced longitudinal fracture of left patella, subsequent encounter for closed fracture with routine healing (principal); X58.XXXD Exposure to other specified factors, subsequent encounter | CPT/HCPCS: 73562; 99024 ==

== ENCOUNTER → 2024-02-25 14:09 | Outpatient (BNVA) | payer MEDICARE, MEDICAID, SELFPAY | PROVIDERS: PCP Internal Medicine; Visit Provider Student in an Organized Health Care Education/Training Program | DX: M25.519 Pain in unspecified shoulder (principal); M19.011 Primary osteoarthritis, right shoulder; G56.01 Carpal tunnel syndrome, right upper limb; E11.9 Type 2 diabetes mellitus without complications; Z01.818 Encounter for other preprocedural examination | CPT/HCPCS: 36415; 73030; 80053; 81001; 83036; 85025; 87077; 87086; 87186; 99214 ==

== ENCOUNTER 2024-07-30 09:09 | Outpatient (CLI) | payer MEDICARE, MEDICAID, SELFPAY ==
--- NOTE | 2024-07-30 09:20 | MM_ITS ---
WS: [email or web address] BILATERAL SCREENING DIGITAL TOMOSYNTHESIS MAMMOGRAM WITH CAD HISTORY: SCREENING COMPARISON: 07/18/2023, 01/02/2021 and 04/04/2022 Bilateral CC and MLO views with tomosynthesis and synthetic mammography submitted. Computer aided det ection analyzed. Breast composition: There are scattered areas of fibroglandular density. No suspicious masses, microc alcifications or architectural distortion. Scattered asymmetric densities are noted anteriorly within each breast, RIGHT greater than LEFT. No interval change. No distortion. Heavy vascular calcificatio ns and numerous benign round punctate calcifications in each breast. MM/[id number] IMPRESSION: BI-RADS: 2-Benign FOLLOW UP: 1 Year Follow-up
== END 2024-07-30 09:10 | disposition home or self-care (01) ==
LOC: MOBLMAM 09:30
PROVIDERS: PCP Internal Medicine; Visit Provider Internal Medicine
DX: Z12.31 Encounter for screening mammogram for malignant neoplasm of breast (principal); R92.323 Mammographic fibroglandular density, bilateral breasts; R92.1 Mammographic calcification found on diagnostic imaging of breast
CPT/HCPCS: 77063; 77067

== ENCOUNTER 2024-12-16 13:34 | Emergency (ER) | payer MEDICARE, MEDICAID, SELFPAY ==
--- NOTE | 2024-12-16 13:37 | XRR_ITS ---
PROCEDURE INFORMATION: Exam: XR Chest Exam date and time: 12/16/2024 1:50 PM Age: 84 years old Clinical indication: Angina pectoris; Prior surgery; Surgery date: 6+ months; Surgery type: Cardiac stent; Patient HX: Intermittent chest pain since this morning. PT was given 324 asa, 1 nitro, and 4mg iv zofran by EMS enroute. PT reports during time of triage, chest pain has resolved but she has a lot of belching. ; Additional info: Cp TECHNIQUE: Imaging protocol: Radiologic exam of the chest. Views: 1 view. COMPARISON: CR XR chest 1V portable [id number] 10/17/2023 1:59 PM FINDINGS: Lungs: Unremarkable. No consolidation. Pleural spaces: Unremarkable. No pleural effusion. No pneumothorax. Heart/Mediastinum: Unremarkable. No cardiomegaly. Bones/joints: No acute findings. A metallic plate is seen in the cervical spine. XR/XR chest 1V portable [id number] IMPRESSION: No acute findings.
--- NOTE | 2024-12-16 13:37 | ECG_ITS ---
[facility]: [facility]24[facility]16 Pat Name: Kat Cat Department: Room: Gender: Female Chief Meter Reader: : 1940 Requested By: Edna Quintero Order Number: [id number] Reading MD: ROSALES SPRAGUE Measurements Intervals [place] Rate: 63 P: 62 OR: 180 QRS: 28 QRSD: 86 T: 66 QT: 389 QTc: 401 Interpretive Statements SINUS RHYTHM Compared to ECG 12/16/2024 13:40:47 No significant changes Electronically Signed On 12-18-2024 23:29:14 TARP REPAIRER by ROSALES SPRAGUE [id number]
[2024-12-16 13:39] VITALS: BP 113/66; PULSE 67; RESP 16; TEMP 36.7; O2SAT 98; BMI 25.4
--- NOTE | 2024-12-16 13:40 | ECG_ITS ---
[facility] Date: 2024-12-16 Pat Name: Kat Cat Department: Room: Gender: Female Ironer Hand: : 1940 Requested By: Edna Quintero Order Number: [id number] Reading MD: ROSALES SPRAGUE Measurements Intervals [place] Rate: 70 P: 62 RI: 169 QRS: 18 QRSD: 81 T: 64 QT: 384 QTc: 415 Interpretive Statements SINUS RHYTHM Compared to ECG 10/17/2023 15:28:33 No significant changes Electronically Signed On 12-21-2024 23:22:47 SUPERVISOR PIPE MANUFACTURE by ROSALES SPRAGUE [id number]
[2024-12-16 14:45] LABS: Basophils % 0.3 %; Eosinophils # 0.1 10^3/uL (0.0-0.8); Eosinophils % 1.1 %; Hematocrit 35.9 % (36-47); Lymphocytes # 1.9 10^3/uL (0.8-4.8); Lymphocytes % 20.4 %; Mean Corpuscular Hemoglobin 31.7 pg (27-33); Mean Corpuscular Volume 93.2 fl (85-98); Mean Platelet Volume 10.5 fL (7.4-10.4); Monocytes # 0.5 10^3/uL (0.2-0.9); Monocytes % 5.6 %; Neutrophils # 6.77 10^3/uL (1.8-7.7); Neutrophils % 72.1 %; Nucleated Red Blood Cells % 0 %; Platelet Count 196 10^3/cmm (157-399); Red Blood Count 3.85 10^6/uL (3.85-5.65); Red Cell Distribution Width 12.2 % (12.1-15.1)
[2024-12-16 15:02] LABS: Troponin(5th) Baseline 11 ng/L (0-10)
[2024-12-16 15:15] LABS: Alanine Aminotransferase 53 U/L (0-33); Albumin Level 4.1 g/dL (3.5-5.2); Alkaline Phosphatase 77 U/L (35-105); Anion Gap 16.9 (5-19); Aspartate Amino Transferase 22 U/L (0-32); Blood Urea Nitrogen 16 mg/dL (8-23); Calcium 9.8 mg/dL (8.5-10.5); Carbon Dioxide 25 mmol/L (22-29); Chloride 99 mmol/L (98-107); Creatinine Clr Calc Pharmacy 45.3992; Globulin 1.9 g/dL (1.3-4.6); Glucose 102 mg/dL (65-115); Osmolality Calculated 285 mOsm/kg (285-295); Potassium 3.9 mmol/L (3.5-5.1); Sodium 137 mmol/L (136-145); Total Bilirubin 0.5 mg/dL (0.15-1.2)
--- NOTE | 2024-12-16 15:54 | W.ED.CHESTPA ---
HPI - Chest Pain General: Chief Complaint: Chest Pain Stated Complaint: Chest Pain Time Seen by Provider: 12/16/24 15:25 Source: patient and EMS Limitations: no limitations History of Present Illness: 84-year-old female states she has been having chest pain started this morning. States that this, sharp pain has some tenderness to her left chest states she also been burping a lot pain is since resolved. She denies any fevers denies any shortness of breath denies any nausea. Associated symptoms: Deny abdominal pain, dyspnea, fever(s), nausea or vomiting Related Data Home Medications Medication Instructions Recorded Confirmed gabapentin 600 mg tablet 600 mg PO QPM 02/24/20 12/16/24 isosorbide dinitrate 30 mg tablet 30 mg PO DAILY 02/24/20 12/16/24 levothyroxine 75 mcg capsule 75 mcg PO DAILY 02/24/20 12/16/24 citalopram 20 mg tablet 20 mg PO DAILY 05/06/23 12/16/24 methenamine hippurate 1 gram tablet 1 g PO DAILY 05/06/23 12/16/24 omeprazole 40 mg capsule,delayed 40 mg PO DAILY 05/06/23 12/16/24 release atorvastatin 40 mg tablet 40 mg PO DAILY 12/16/24 12/16/24 dulaglutide 1.5 mg/0.5 mL 1.5 mg SUBCUT Q7D 12/16/24 12/16/24 [facility] enalapril 5 mg-hydrochlorothiazide 1 tab PO DAILY 12/16/24 12/16/24 12.5 mg tablet Previous Rx's Medication Instructions Recorded Cock Up Splint #1 ea 10/29/22 hinged knee brace, left #1 ea 01/13/24 Allergies Allergy/AdvReac Type Severity Reaction Status Date / Time sulfamethoxazole Allergy NA Verified 02/25/24 14:54 [From Bactrim] trimethoprim [From Bactrim] Allergy NA Verified 02/25/24 14:54 Review of Systems Const: Denies: fever(s), chills, body aches or change in appetite Eyes: Denies: eye discomfort ENMT: Denies: throat pain or dental pain Card: Reports: chest pain Resp: Denies: dyspnea GI: Denies: abdominal pain, nausea, vomiting or diarrhea Musc: Denies: neck pain or back pain Skin/Breast: Denies: rash Neuro: Denies: headache(s) PFSH ED PFSH: Medical History HTN (hypertension) Surgical History History of neck surgery H/O heart artery stent Family History Family/Other Cancer Diabetes CAD (coronary artery disease) Mother Cancer Colon CA Brother Cancer Colon CA Social History Smoking and tobacco/nicotine status: never used tobacco/nicotine Alcohol intake: never Substance/Drug Use: never Marital status: Current occupational status: retired Physical Exam Const: COMMON NORMALS: no acute distress, patient oriented x3 and healthy appearing HENMT: COMMON NORMALS: normocephalic and atraumatic HEAD & SCALP: normocephalic and atraumatic Eye: COMMON NORMALS: conjunctivae normal CONJUNCTIVA: Yes conjunctivae normal Neck/C-Spine: COMMON NORMALS: full ROM and supple Chest: COMMONS NORMALS: normal inspection of the chest OTHER: point tender to left chest Resp: COMMON NORMALS: normal respiratory effort, No retractions, No use of accessory muscles and clear to auscultation bilaterally AUSCULTATION: clear to auscultation bilaterally Cardio: COMMON NORMALS: regular rate, regular rhythm and No murmurs present (Cardio) RATE: regular rate RHYTHM: regular rhythm GI: COMMON NORMALS: Normal to inspection, nondistended, normoactive bowel sounds present, Soft to palpation, non-tender and no masses PALPATION: Yes Soft to palpation Extremity: COMMON NORMALS: normal to inspection and full ROM Neuro: COMMON NORMALS: patient oriented x3, moves all extremities and no focal motor deficits Psych: COMMON NORMALS: mental status grossly normal, Normal thought process present and cooperative THOUGHT PROCESS: Normal thought process present Skin: COMMON NORMALS: no rashes or lesions noted and no wounds GENERAL SKIN EXAM: no rashes or lesions noted Course Vital Signs: Vital signs: Vital Signs Temperature 98.1 F 12/16/24 13:39 Pulse Rate 74 12/16/24 17:40 Respiratory Rate 19 H 12/16/24 17:40 Blood Pressure 126/67 12/16/24 17:40 Pulse Oximetry 96 12/16/24 17:40 Oxygen Delivery Me thod Room Air 12/16/24 16:59 MDM - Chest Pain Medical Decision Making Patient presents here chest pains atypical in nature she is point tender on exam reproduces her pain is likely muscular troponins here are negative no signs of ACS no signs of dissection no signs of pulmonary embolism patient stable for discharge at this time follow-up with PCP return if worsening she understands agrees to plan Medical Records I reviewed the patient's medical records. Lab Data I reviewed the patient's lab results. 12/16/24 14:35 12/16/24 14:35 Radiology Impressions Chest X-Ray 12/16/24 13:37 IMPRESSION: No acute findings. Laboratory Results WBC 9.40 10^3/uL (3.29-11.43) 12/16/24 14:35 RBC 3.85 10^6/uL (3.85-5.65) 12/16/24 14:35 Hgb 12.20 g/dL (11.27-16.99) 12/16/24 14:35 Hct 35.9 % (36-47) L 12/16/24 14:35 MCV 93.2 fl (85-98) 12/16/24 14:35 MCH 31.7 pg (27-33) 12/16/24 14:35 MCHC 34.0 g/dL (30-55) 12/16/24 14:35 RDW 12.2 % (12.1-15.1) 12/16/24 14:35 Plt Count 196 10^3/cmm (157-399) 12/16/24 14:35 MPV 10.5 fL (7.4-10.4) H 12/16/24 14:35 Neut % (Auto) 72.1 % 12/16/24 14:35 Lymph % (Auto) 20.4 % 12/16/24 14:35 [place] % (Auto) 5.6 % 12/16/24 14:35 Eos % (Auto) 1.1 % 12/16/24 14:35 Baso % (Auto) 0.3 % 12/16/24 14:35 Neut # (Auto) 6.77 10^3/uL (1.8-7.7) 12/16/24 14:35 Lymph # (Auto) 1.9 10^3/uL (0.8-4.8) 12/16/24 14:35 [place] # (Auto) 0.5 10^3/uL (0.2-0.9) 12/16/24 14:35 Eos # (Auto) 0.1 10^3/uL (0.0-0.8) 12/16/24 14:35 Baso # (Auto) 0.0 10^3/uL (0.0-0.1) 12/16/24 14:35 Nucleated RBC % (auto) 0 % 12/16/24 14:35 Nucleated RBCs # 0.0 /100WBC 12/16/24 14:35 Sodium 137 mmol/L (136-145) 12/16/24 14:35 Potassium 3.9 mmol/L (3.5-5.1) 12/16/24 14:35 Chloride 99 mmol/L (98-107) 12/16/24 14:35 Carbon Dioxide 25 mmol/L (22-29) 12/16/24 14:35 Anion Gap 16.9 (5-19) 12/16/24 14:35 BUN 16 mg/dL (8-23) 12/16/24 14:35 Creatinine 0.9 mg/dL (0.5-0.9) 12/16/24 14:35 GFR Calculation Not Reportable 12/16/24 14:35 Glucose 102 mg/dL (65-115) 12/16/24 14:35 Calculated Osmolality 285 mOsm/kg (285-295) 12/16/24 14:35 Calcium 9.8 mg/dL (8.5-10.5) 12/16/24 14:35 Total Bilirubin 0.5 mg/dL (0.15-1.2) 12/16/24 14:35 AST 22 U/L (0-32) 12/16/24 14:35 ALT 53 U/L (0-33) H 12/16/24 14:35 Alkaline Phosphatase 77 U/L (35-105) 12/16/24 14:35 Troponin T Baseline 11 ng/L (0-10) H 12/16/24 14:35 Troponin T 120 Minute 12.23 ng/L (0-10) H 12/16/24 16:27 Delta Troponin T 1.23 ABS# (0-10) 12/16/24 16:27 Total Protein 6.0 g/dL (6.6-8.7) L 12/16/24 14:35 Albumin 4.1 g/dL (3.5-5.2) 12/16/24 14:35 Globulin 1.9 g/dL (1.3-4.6) 12/16/24 14:35 All radiology interpretation(s) finalized by discharge EKG Data EKG 1: I personally reviewed and interpreted this EKG as follows: EKG interpretation date: 12/16/24 EKG interpretation time: 15:50 Interpretation: nsr hr [address] elevation qrs 86 qtc 397 Discharge Plan Discharge Patient Disposition: Home Clinical Impression: Chest pain Condition: Stable Prescriptions: No Action isosorbide dinitrate 30 mg tablet 30 mg PO DAILY levothyroxine 75 mcg capsule 75 mcg PO DAILY gabapentin 600 mg tablet 600 mg PO QPM (DME) Cock Up Splint See Rx Instructions .Route .MEDSUPPLY Qty: 1 0RF Rx Instructions: As directed (DME) hinged knee brace, left See Rx Instructions .Route .MEDSUPPLY Qty: 1 0RF Rx Instructions: As directed omeprazole 40 mg capsule,delayed release(DR/EC) 40 mg PO DAILY methenamine hippurate 1 gram tablet 1 g PO DAILY citalopram 20 mg tablet 20 mg PO DAILY enalapril-hydrochlorothiazide 5-12.5 mg Tablet 1 tab PO DAILY Trulicity 1.5 mg/0.5 mL Pen Injector 1.5 mg SUBCUT Q7D atorvastatin 40 mg tablet 40 mg PO DAILY Discharge Orders: Discharge ED (Routine); Ordered 12/16/24 Ordered By: Edna Quintero Referrals: Mayte Caraballo MD [Primary Care Provider] - 4-7 days Discharge Diet: Advance as tolerated Discharge Activity: Resume usual activity Patient Instructions: Chest Pain (ED) Coding Level of Care Code ED [employer] for [employer]
[2024-12-16 16:02] VITALS: BP 129/67; PULSE 68; RESP 18; O2SAT 98
[2024-12-16 16:59] VITALS: BP 126/62; PULSE 64; RESP 26; O2SAT 100
[2024-12-16 17:01] LABS: Troponin 5 2HR 12.23 ng/L (0-10); Troponin 5 2HR Delta 1.23 ABS# (0-10)
[2024-12-16 17:40] VITALS: BP 126/67; PULSE 74; RESP 19; O2SAT 96
== END 2024-12-16 17:43 | disposition home or self-care (01) ==
PROVIDERS: Emergency Provider Emergency Medicine; PCP Internal Medicine
DX: R07.9 Chest pain, unspecified (principal); I10 Essential (primary) hypertension
CPT/HCPCS: 36415; 71045; 80053; 84484; 85025; 93005; 99285

== ENCOUNTER 2025-08-24 15:11 | Outpatient (CLI) | payer MEDICARE, MEDICAID, SELFPAY ==
--- NOTE | 2025-08-24 15:19 | XR_ITS ---
WS: [id number] Exam: XR shoulder RT min 2V* [id number] Date/Time of Exam: 08/24/2025 3:45 PM Reason For Exam: PAIN IN R SHOULDER DLP: No fracture. 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 Hypertrophic osteophyte formation along the medial aspect of the humeral head. Subacromial bone spurring. Degenerative change and arthrosis at the AC joint. XR/XR shoulder RT min 2V* [id number] IMPRESSION: 1. Moderately advanced degenerative changes as noted above. No fracture.
--- NOTE | 2025-08-24 15:19 | XR_ITS ---
WS: [id number] Exam: XR cervical spine min 6V [id number] Date/Time of Exam: 08/24/2025 3:45 PM Reason For Exam: CERVICALGIA DLP: Comparison 04/20/2020. No fracture or malalignment. There is operative fusion of the spine from C4-C6 with anterior plate and screw fixation. The fusion is in good alignment. No sign of hardware complication. Advanced facet DJD at all levels. Normal paraspinal soft tissues. The bony neural foramina appear to be grossly patent. The dens is intact. No flexion or extension instability identified. Bilateral carotid artery calcifications. XR/XR cervical spine min 6V [id number] IMPRESSION: 1. Stable appearing anterior fusion from C4-C6. 2. No fracture or instability identified. 3. Advanced degenerative changes.
== END 2025-08-24 15:12 | disposition home or self-care (01) ==
PROVIDERS: PCP Internal Medicine; Visit Provider Internal Medicine
DX: M19.011 Primary osteoarthritis, right shoulder (principal); M25.711 Osteophyte, right shoulder; M75.91 Shoulder lesion, unspecified, right shoulder; M47.812 Spondylosis without myelopathy or radiculopathy, cervical region
CPT/HCPCS: 72052; 73030

== ENCOUNTER → 2025-09-07 09:02 | Outpatient (BNVA) | payer MEDICARE, MEDICAID, SELFPAY | PROVIDERS: PCP Internal Medicine; Visit Provider Student in an Organized Health Care Education/Training Program | DX: M25.512 Pain in left shoulder (principal); M19.011 Primary osteoarthritis, right shoulder; M19.012 Primary osteoarthritis, left shoulder | CPT/HCPCS: 73030; 99204 ==

== ENCOUNTER → 2025-09-17 09:58 | Outpatient (BNVA) | payer MEDICARE, MEDICAID, SELFPAY | PROVIDERS: PCP Internal Medicine; Visit Provider Student in an Organized Health Care Education/Training Program | DX: M19.011 Primary osteoarthritis, right shoulder (principal); Z71.89 Other specified counseling | CPT/HCPCS: 20610; 77002; J3301; J9999 ==